=== PATIENT | female | born 1990 | race Caucasian/White ===

== ENCOUNTER 2025-05-30 06:10 | Day surgery (SDC) | payer OTHER, SELFPAY ==
[2025-05-30] VITALS (7 sets, daily range): BP systolic 110–120; BP diastolic 62–78; BMI 23.8
--- NOTE | 2025-05-30 06:31 | HPS.HSE ---
Family Physician
-
Family Physician: NO INTERVIEW UNKNOWN
Chief Complaint
-
D&E
History of Present Illness
Patient is a 35yo who presents for surgery consult for dilation and evacuation. She had an ultrasound on 05/25 that showed a blighted ovum. Patient was previously counseled on management options including expectant, medical and surgical
management and she desires surgical management with D&E. She has not had any bleeding or cramping. EPDS 7
PMHx: ADHD
Meds: Adderall 15mg daily
Surghx: tonsillectomy, bladder surgery, C/Sx2
NKDA
Socialhx: social etoh, denies tobacco or illicit drug use
Famhx: denies
OBHx: FT C/Sx2
Gynhx: regular periods before , denies STDs or abnormal Pap smears
Medical History
Past Medical History
Past Medical History: Reports Other
Past Surgical History: Reports and Tonsilectomy
Social History
Tobacco: Non-smoker
Alcohol: None
Drug: None
Family History
Family History: Not pertinent
Allergies / Home Medications
Allergies reflects when Allergies were last updated in [facility].
Home Medications with original date entered in [facility]
Allergy/Medication List:
Meds: Adderall 15mg PO daily
NKDA
Review of Systems
-
A 12 point ROS was completed and negative except as noted: Yes
Physical Exam
Physical Exam
General: Well Developed
HEENT: NormoCephalic
Respiratory: Non Labored Respirations
Cardiac: Regular Rhythm
Skin: Warm and Dry
Neuro: Awake and Alert
Psych: Calm
Impression/Plan
-
IMPRESSION:
Patient is a 35yo with a blighted ovum
PLAN:
- Patient previously counseled on options for management and desires surgical management with D&E
- Risks, benefits and alternatives reviewed of D&E including bleeding, infection, damage to surrounding structures, need for future operations, uterine perforation, Asherman's syndrome or incomplete evacuation. She was consented for a blood
transfusion in case of emergency. She does not think she wants chromosome analysis sent, but will think about it and let me know the morning of surgery. Consents were signed
- H&H and T&S ordered for the morning of the procedure
- Postop expectations and restrictions reviewed
[2025-05-30 10:10] LABS: Hematocrit 34.8 % (37.0-47.0); Hemoglobin 12.6 g/dL (12.0-16.0)
[2025-05-30] MEDS: TYLENOL 1000 MG PO (10:28)
[2025-05-30] MEDS: NORMOSOL-R/PLASMALYTE-A 1000 IV (10:29)
[2025-05-30] MEDS: VIBRAMYCIN 200 MG PO (12:46)
--- NOTE | 2025-05-30 20:04 | OR.RPT ---
Operative Report
Operative Report
Date of procedure: 05/30/2025
Preop diagnosis: blighted ovum
Postop diagnosis: same
Surgeon: Mari
Procedure: dilation and evacuation
Anesthesia: General
EBL: 150mL
Findings: Bimanual exam revealed anteverted uterus. Normal appearing cervix without lesions or masses. Brisk bleeding after evacuation of products responded to bimanual massage, Methergine and TXA.
Complications: none
Pathology: products of conception
Indication: Patient is a 35yo who presents for scheduled dilation and evacuation. She had an ultrasound showing a blighted ovum. She was counseled on options including expectant, medical and surgical management. She desired surgical
management with dilation and evacuation. Risks, benefits and alternatives were discussed and all questions answered prior to proceeding. Consents were previously signed.
Procedure:
Patient was taken to the operating room and placed under general anesthesia. She was placed in the dorsal lithotomy position with Ramez type stirrups. She was given 200mg Doxycycline PO was given prior to the procedure for antibiotic prophylaxis.
She was prepped and draped in the normal sterile fashion. The bladder was drained with a straight catheter yielding 400cc of clear yellow urine. A Botello retractor was placed in the posterior aspect of the vagina and the anterior aspect of the vagina
revealing good visualization of the cervix. The anterior lip of the cervix was grasped with a single tooth tenaculum. The cervix was sequentially dilated to accommodate a 7mm curved rigid suction curette. A 7mm curved rigid suction curette was
introduced to the fundus. Vacuum was applied until it was in the green. A suction curettage was then performed with a rotational motion in all quadrants of the uterus. Multiple passes were performed until all products of conception were removed.
Care was taken not to introduce the suction curette with suction applied. After evacuation of products, brisk bleeding was noted. Bimanual massage performed and patient given TXA and Methergine with improvement in bleeding. The tenaculum was removed
from the anterior lip of the cervix. Hemostasis was then noted. All instruments were removed from the vagina. All sponge and instrument counts were correct times 2. Patient was taken to PACU in stable condition.
== END 2025-05-30 15:26 | disposition home or self-care (01) ==
LOC: SDS 06:10
PROVIDERS: ATTENDING PHYSICIAN Student in an Organized Health Care Education/Training Program
DX: O02.1 Missed abortion (principal)
CPT/HCPCS: 59820; 85014; 85018; 86850; 86900; 86901; 88305